=== PATIENT | female | born 1950 | race Caucasian/White ===

== ENCOUNTER 2021-06-17 06:18 | Emergency (ER) | payer MEDICARE ==
[2021-06-17] MEDS ORDERED: Aspirin 81 MG Tab.Chew PO STA (06:57)
[2021-06-17] MEDS ORDERED: HYDROmorphone 0.5 MG/0.5 ML Syringe IVPUSH ONE (06:57)
[2021-06-17] MEDS ORDERED: Ondansetron 4 MG/2 ML SDV IVPUSH ONE (06:57)
--- NOTE | 2021-06-17 06:58 | EDM.PDOC ---
<Nick Steward - Last Filed: 06/17/21 08:20> ED HPI GENERAL MEDICAL PROBLEM - General Chief Complaint: Chest Pain Stated Complaint: RIGHT SHOULDER PAIN Time Seen by Provider: 06/17/21 06:35 Source of Information: Reports: Patient, Family () History Limitations: Reports: No Limitations - History of Present Illness INITIAL COMMENTS - FREE TEXT/NARRATIVE: Mrs. Garcia is a very pleasant 71-year-old woman who now presents the ED after waking up at 04:00 with right shoulder pain. She states that the pain did not wake her up, but that it was present when she woke up. The pain then moved to involve her entire right upper extremity, her right back, then her anterior right chest at the site of her cardiac optimizer. Her pain is not modifiable with movement or position. She has had associated nausea, although no dyspnea, diaphoresis, or sense of impending doom. No prior similar symptoms. The patient did not take any [id number] or home remedies prior to coming to the ED. The patient has a past medical history significant for coronary artery disease and CHF. She states that she developed easy fatigability around 2006. An ec hocardiogram found severe CHF with a LVEF of 20 to 25%. A subsequent coronary angiogram found multivessel disease, prompting her to undergo a 3-vessel CABG in 2016. She states that she has never experienced angina, and never suffered an [place]. Her last cardiac stress test was in December 2019. The patient relates that she is supposed to take a baby aspirin per day, but does not. She also has a history of diabetes that she does not take her prescribed Metformin, and dyslipidemia that she does not treat, either. Here in the ED this morning, the patient's initial BP is found to be modestly elevated at 150/100, otherwise, she is hemodynamically stable, afebrile, saturating 98% on room air. She appears to be comfortable, in no acute distress. She states that at this time, she has only right shoulder pain, with no right upper extremity, back, or chest pain. Prior to this morning, the patient denies having a recent fever, chills, sore throat, ear pain, nasal or sinus congestion, cough, dyspnea, chest pain, palpitations, nausea, vomiting, constipation, diarrhea, abdominal pain, urinary symptoms, recent weight gain or weight loss, recent bloody bowel movements or black bowel movements, recent joint aches, headaches, or rashes. The patient and her reside in [place], although have a house in this area. She does not have a PCP in this area. She has an appointment to meet the Change Agent Dr. Yan Workman, at [facility], on 06/24/2021. She has received 2 COVID vaccinations. Right Shoulder Pain Score (Numeric/FACES): 10 - Related Data Allergies Allergy/AdvReac Type Severity Reaction Status Date / Time No Known Allergies Allergy Verified 06/17/21 06:58 Past Medical History Cardiovascular History: Reports: CAD (untreated), Heart Failure (LVEF 20-25%), High Cholesterol (untreated) Endocrine/Metabolic History: Reports: Diabetes, Type II (untreated) - Past Surgical History HEENT Surgical History: Reports: Tonsillectomy Cardiovascular Surgical History: Reports: AICD, Coronary Artery Bypass (x 3 vessel, 2017), Other (See Below) (Cardiac optimizer) GI Surgical History: Reports: Appendectomy Female Surgical History: Reports: Section (x 2), Hysterectomy (complete) Social & Family History - Tobacco Use Tobacco Use Status *Q: Former Tobacco User Years of Tobacco use: 33 Packs/Tins Daily: 1 Month/Year Tobacco Last Used: Quit 2004 Tobacco Use Comment: Started smoking 1971 - Alcohol Use Alcohol Use History: Yes Alcohol Use Frequency: Socially - Recreational Drug Use Recreational Drug Use: No - Living Situation & Occupation Living situation: Reports: , with Spouse Occupation: Unemployed ED ROS GENERAL - Review of Systems Review Of Systems: Comprehensive ROS is negative, except as noted in HPI. ED EXAM, GENERAL - Physical Exam Exam: See Below Exam Limited By: No Limitations General Appearance: Alert, WD/WN, No Apparent Distress Eye Exam: Bilateral Eye: EOMI, Normal Inspection Ears: Normal External Exam, Hearing Grossly Normal Nose: Normal Inspection Throat/Mouth: Normal Inspection, Normal Lips, Normal Voice, No Airway Compromise Head: Atraumatic, Normocephalic Neck: Normal Inspection, Full Range of Motion Respiratory/Chest: No Respiratory Distress, Lungs Clear, Normal Breath Sounds, No Accessory Muscle Use, Chest Non-Tender. No: Decreased Breath Sounds, Crackles, Rhonchi, Wheezing, Stridor, Prolonged Expiration Cardiovascular: Normal Peripheral Pulses, No Gallop, No JVD, No Murmur, No Rub, Irregularly Irregular (frequent PACs) Peripheral Pulses: 3+: Radial (L), Radial (R) GI/Abdominal: Normal Bowel Sounds, Soft, Non-Tender, No Organomegaly, No Distention, No Abnormal Bruit, No Mass Back Exam: Normal Inspection, Full Range of Motion, NT Extremities: Normal Range of Motion, No Pedal Edema, Normal Capillary Refill, Other (Tenderness to palpation to the lateral right shoulder, and pain to the shoulder with PROM, however, the patient is unable to say if the pain is the same as her initial presenting symptom) Neurological: Alert, Oriented, Normal Cognition, No Motor/Sensory Deficits Psychiatric: Normal Affect Skin Exam: Warm, Dry, Intact, Normal Color, No Rash #1 Interpretation EKG Date: 06/17/21 Time: 06:31 Rhythm: NSR (with several PACs) Rate (Beats/Min): 82 [place]: Normal P-Wave: Present QRS: RBBB (incomplete) ST-T: Depressed (II, aVF, V3-V6, w/ T-wave inversions V4-V6) QT: Normal Comparison: NA - No Prior EKG Course - Re-Assessments/Exams Free Text/Narrative Re-Assessment/Exam: 06/17/21 06:56 The patient woke with right shoulder pain, and she describes a sensation as a pain, not a discomfort. These features are not consistent with angina, however, the patient's ECG demonstrates diffuse ST depressions with T wave inversions, which are concerning for ischemia. Unfortunately, we do not have a prior ECG to compare. I have ordered a work-up that includes several blood tests and a portable chest x-ray. In the meantime, the patient will be given 4 baby aspirin, some IV Dilaudid, and some IV Zofran. 06/17/21 07:42 Notified that the patient's blood glucose is 404. I have ordered 8 units of regular insulin IVP. 06/17/21 07:47 Portable chest radiograph reviewed. There is mild cardiomegaly. No pulmonary vascular congestion or cephalization. No pleural effusions seen on this AP view. No focal infiltrate. No pneumothorax. Single-lead left-sided AICD noted. Triple-lead right-sided cardiac optimizer noted. Sternotomy wires noted. Formal read per the Radiologist pending. 06/17/21 08:00 The patient's CBC is unremarkable. Her CMP is remarkable for a Cr slightly elevated at 1.1 with a BUN normal at 18, hyperglycemia of 404, and an alkaline phosphatase slightly elevated at 117, with remainder of her CMP being unremarkable. Her troponin is undetectably low. Her pro-BNP is modestly elevated at 919. Her D-dimer is modestly elevated at 1.12. Her coags are within normal limits. I have ordered a repeat troponin to be drawn at 08:00, 4 hours after the onset of her symptoms. 06/17/21 08:[address] Cruz, and care of the patient turned over to him at this time for delong of shift. Departure - Departure Disposition: DC/Tfer to Acute Hospital 02 Clinical Impression: Non-STEMI (non-ST elevated myocardial infarction) Referrals: PCP,Not In Area [Primary Care Provider] - Yan Workman MD [Ordering Only Provider] - Forms: ED Department Discharge Sepsis Event Note (ED) - Evaluation Sepsis Screening Result: No Definite Risk <Adan Cruz - Last Filed: 06/17/21 14:12> Course - Vital Signs Last Recorded V/S: Last Vital Signs Temp 97.6 F 06/17/21 06:42 Pulse 83 06/17/21 06:42 Resp 18 06/17/21 06:42 BP 150/100 H 06/17/21 06:42 Pulse Ox 98 06/17/21 06:42 - Orders/Labs/Meds Orders: Active Orders 24 hr Category Date Time Status Heparin Sodium/D5W [Heparin 25,000 Units in D5W 500 ML] Med 06/17/21 09:30 Active 25,000 units in 500 ml IV TITRATE Nitroglycerin/D5W [Nitroglycerin 25 MG/D5W 250 ML] Med 06/17/21 09:30 Active 25 mg in 250 ml IV TITRATE Sodium Chloride 0.9% [Normal Saline] 1,000 ml Med 06/17/21 08:30 Active IV ASDIRECTED Sodium Chloride 0.9% [Normal Saline] 100 ml Med 06/17/21 08:30 Active IV ASDIRECTED Sodium Chloride 0.9% [Saline Flush] Med 06/17/21 08:19 Active 10 ml FLUSH ONETIME PRN Medication Orders Sodium Chloride (Normal Saline) 1,000 mls @ 75 mls/hr IV ASDIRECTED DAYRON Last Admin: 06/17/21 10:01 Dose: 75 mls/hr Documented by: SANKET Sodium Chloride (Normal Saline) 100 mls @ 75 mls/hr IV ASDIRECTED DAYRON Last Admin: 06/17/21 08:38 Dose: 75 mls/hr Documented by: SARWAT Nitroglycerin/Dextrose (Nitroglycerin 25 Mg/D5w 250 Ml) 25 mg in 250 mls @ 3 mls/hr IV TITRATE DAYRON; Protocol Last Admin: 06/17/21 09:58 Dose: 3 mls/hr, 3 mls/hr Documented by: SANKET Heparin Sodium/Dextrose (Heparin 25,000 Units In D5w 500 Ml) 25,000 units in 500 mls @ 19.858 mls/hr IV TITRATE DAYRON; Protocol Last Admin: 06/17/21 09:47 Dose: 11 units/kg/hr, 19.858 mls/hr Documented by: SANKET Cosigned by: MATLBIL Sodium Chloride (Sodium Chloride 0.9% 10 Ml Syringe) 10 ml FLUSH ONETIME PRN PRN Reason: IV FLUSH Last Admin: 06/17/21 08:38 Dose: 10 ml Documented by: SARWAT Labs: Laboratory Tests 06/17/21 06/17/21 06/17/21 Range/Units 06:40 06:40 06:40 WBC 8.05 (3.98-10.04) K/mm3 RBC 4.57 (3.98-5.22) M/mm3 Hgb 13.8 (11.2-15.7) gm/dl Hct 41.3 (34.1-44.9) % MCV 90.4 (79.4-94.8) fl MCH 30.2 (25.6-32.2) pg MCHC 33.4 (32.2-35.5) g/dl RDW Std Deviation 50.1 H (36.4-46.3) fL Plt Count 245 (182-369) K/mm3 MPV 9.6 (9.4-12.3) fl Neutrophils % (Manual) 77 H (40-60) % Band Neutrophils % 0 (0-10) % Lymphocytes % (Manual) 23 (20-40) % Atypical Lymphs % 0 % Monocytes % (Manual) 0 L (2-10) % Eosinophils % (Manual) 0 L (0.7-5.8) % Basophils % (Manual) 0 L (0.1-1.2) Platelet Estimate Adequate RBC Morph Comment Normal PT 10.5 (9.7-12.0) SECONDS INR 0.94 APTT 24.5 (21.7-31.4) SECONDS D-Dimer, Quantitative 1.12 H (0.19-0.50) mg/L Sodium 138 (136-145) mEq/L Potassium 4.0 (3.5-5.1) mEq/L Chloride 103 (98-107) mEq/L Carbon Dioxide 26 (21-32) mEq/L Anion Gap 13.0 (5-15) BUN 18 (7-18) mg/dL Creatinine 1.1 H (0.55-1.02) mg/dL Est Cr Clr Drug Dosing 52.20 mL/min Estimated GFR (MDRD) 49 (>60) mL/min BUN/Creatinine Ratio 16.4 (14-18) Glucose 404 H* (70-99) mg/dL Calcium 8.6 (8.5-10.1) mg/dL Total Bilirubin 0.5 (0.2-1.0) mg/dL AST 13 L (15-37) U/L ALT 19 (14-59) U/L Alkaline Phosphatase 117 H (46-116) U/L Troponin I < 0.017 (0.00-0.056) ng/mL NT-Pro-B Natriuret Pep (0-125) pg/mL Total Protein 7.3 (6.4-8.2) g/dl Albumin 3.3 L (3.4-5.0) g/dl Globulin 4.0 gm/dL Albumin/Globulin Ratio 0.8 L (1-2) SARS-CoV-2 RNA (DELBERT) (NEGATIVE) 06/17/21 06/17/21 06/17/21 Range/Units 06:40 08:16 09:06 WBC (3.98-10.04) K/mm3 RBC (3.98-5.22) M/mm3 Hgb (11.2-15.7) gm/dl Hct (34.1-44.9) % MCV (79.4-94.8) fl MCH (25.6-32.2) pg MCHC (32.2-35.5) g/dl RDW Std Deviation (36.4-46.3) fL Plt Count (182-369) K/mm3 MPV (9.4-12.3) fl Neutrophils % (Manual) (40-60) % Band Neutrophils % (0-10) % Lymphocytes % (Manual) (20-40) % Atypical Lymphs % % Monocytes % (Manual) (2-10) % Eosinophils % (Manual) (0.7-5.8) % Basophils % (Manual) (0.1-1.2) Platelet Estimate RBC Morph Comment PT (9.7-12.0) SECONDS INR APTT (21.7-31.4) SECONDS D-Dimer, Quantitative (0.19-0.50) mg/L Sodium (136-145) mEq/L Potassium (3.5-5.1) mEq/L Chloride (98-107) mEq/L Carbon Dioxide (21-32) mEq/L Anion Gap (5-15) BUN (7-18) mg/dL Creatinine (0.55-1.02) mg/dL Est Cr Clr Drug Dosing mL/min Estimated GFR (MDRD) (>60) mL/min BUN/Creatinine Ratio (14-18) Glucose (70-99) mg/dL Calcium (8.5-10.1) mg/dL Total Bilirubin (0.2-1.0) mg/dL AST (15-37) U/L ALT (14-59) U/L Alkaline Phosphatase (46-116) U/L Troponin I 0.084 H* (0.00-0.056) ng/mL NT-Pro-B Natriuret Pep 919 H (0-125) pg/mL Total Protein (6.4-8.2) g/dl Albumin (3.4-5.0) g/dl Globulin gm/dL Albumin/Globulin Ratio (1-2) SARS-CoV-2 RNA (DELBERT) Negative (NEGATIVE) Meds: Medications Generic Name Dose Route Start Last Admin Trade Name Freq PRN Reason Stop Dose Admin Sodium Chloride 1,000 mls @ 75 mls/hr 06/17/21 08:30 06/17/21 10:01 Normal Saline IV 75 mls/hr ASDIRECTED DAYRON Administration Sodium Chloride 100 mls @ 75 mls/hr 06/17/21 08:30 06/17/21 08:38 Normal Saline IV 75 mls/hr ASDIRECTED DAYRON Administration Nitroglycerin/Dextrose 25 mg in 250 mls @ 3 mls/hr 06/17/21 09:30 06/17/21 09:58 Nitroglycerin 25 Mg/D5w 250 Ml IV 3 mls/hr TITRATE DAYRON 3 mls/hr Administration Protocol Heparin Sodium/Dextrose 25,000 units in 500 mls @ 19.858 mls/hr 06/17/21 09:30 06/17/21 09:47 Heparin 25,000 Units In D5w 500 Ml IV 11 units/kg/hr TITRATE DAYRON 19.858 mls/hr Administration Protocol 11 UNITS/KG/HR Sodium Chloride 10 ml 06/17/21 08:19 06/17/21 08:38 Sodium Chloride 0.9% 10 Ml Syringe FLUSH 10 ml ONETIME PRN Administration IV FLUSH Discontinued Medications Generic Name Dose Route Start Last Admin Trade Name Celestina PRN Reason Stop Dose Admin Aspirin 324 mg 06/17/21 06:57 06/17/21 07:03 Aspirin 81 Mg Tab.Chew PO 06/17/21 06:58 324 mg ONETIME STA Administration Heparin Sodium (Porcine) 5,000 units 06/17/21 09:20 06/17/21 09:47 Heparin Sodium 5,000 Units/Ml Vial IVPUSH 06/17/21 09:21 5,000 units .BOLUS ONE Administration Hydromorphone HCl 0.5 mg 06/17/21 06:57 06/17/21 07:04 Hydromorphone 0.5 Mg/0.5 Ml Syringe IVPUSH 06/17/21 06:58 0.5 mg ONETIME ONE Administration Insulin Human Regular 8 unit 06/17/21 07:41 06/17/21 08:07 Insulin Regular, Human 100 Units/Ml 3 Ml Vial IV 06/17/21 07:42 8 unit ONETIME STA Administration Iopamidol 100 ml 06/17/21 08:19 06/17/21 08:38 Iopamidol 755 Mg/Ml 100 Ml Bottle IVPUSH 06/17/21 08:20 100 ml ONETIME ONE Administration Ondansetron HCl 4 mg 06/17/21 06:57 06/17/21 07:04 Ondansetron 4 Mg/2 Ml Sdv IVPUSH 06/17/21 06:58 4 mg ONETIME ONE Administration - Re-Assessments/Exams Free Text/Narrative Re-Assessment/Exam: 06/17/21 09:[address] Steward. Her CT angio shows no findings of pulmonary embolism. 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 Ectatic descending aorta with AP dimension of 3.3cm. Air filled cyst having a thin wall within the right upper lung measuring 1cm. No acute abnormality is otherwise seen. Her repeat troponin came back elevated at 0.084. I feel she is having a nonSTEMI. The pain is not gone but it is better. I ordered nitro drip and a heparin drip and bolus. I called [facility] and they have no beds and cannot take the patient. I called [facility] in [place] and they will have a bed and they will take the patient. I am waiting to talk to the hospitalist. 06/17/21 09:[address] Marrero and he accepted the patient. They will call me back when they have a room. 06/17/21 14:11 They called back and they can take the patient. I will transfer her. She has been doing good. Departure - Departure Time of Disposition: 14:15 Reason for Transfer *Q: Other Condition: Fair Sepsis Event Note (ED) - Focused Exam Vital Signs: Vital Signs Temp Pulse Resp BP Pulse Ox 06/17/21 06:42 97.6 F 83 18 150/100 H 98 - My Orders Last 24 Hours: My Active Orders 06/17/21 08:19 Sodium Chloride 0.9% [Saline Flush] 10 ml FLUSH ONETIME PRN 06/17/21 08:30 Sodium Chloride 0.9% [Normal Saline] 100 ml IV ASDIRECTED 06/17/21 09:30 Heparin Sodium/D5W [Heparin 25,000 Units in D5W 500 ML] 25,000 units in 500 ml IV TITRATE Nitroglycerin/D5W [Nitroglycerin 25 MG/D5W 250 ML] 25 mg in 250 ml IV TITRATE - Assessment/Plan Last 24 Hours: My Active Orders 06/17/21 08:19 Sodium Chloride 0.9% [Saline Flush] 10 ml FLUSH ONETIME PRN 06/17/21 08:30 Sodium Chloride 0.9% [Normal Saline] 100 ml IV ASDIRECTED 06/17/21 09:30 Heparin Sodium/D5W [Heparin 25,000 Units in D5W 500 ML] 25,000 units in 500 ml IV TITRATE Nitroglycerin/D5W [Nitroglycerin 25 MG/D5W 250 ML] 25 mg in 250 ml IV TITRATE
[2021-06-17] MEDS ORDERED: Insulin Regular, Human 100 Units/ML 3 ML Vial IV STA (07:41)
--- NOTE | 2021-06-17 07:51 | CR ---
Chest: Frontal view of the chest was obtained. Comparison: No prior chest imaging is available. AICD is present. Pacemaker also appears to be present. Sternotomy is noted. Heart size is slightly prominent. Lungs are felt to be clear with no acute parenchymal change. Bony structures show slight scoliosis within the spine. Impression: 1. Heart size is slightly prominent. Other findings believed to be chronic as noted above. 2. Nothing acute is seen. Diagnostic code #2
[2021-06-17] MEDS ORDERED: Iopamidol 755 Mg/ML 100 ML Bottle IVPUSH ONE (08:19)
[2021-06-17] MEDS ORDERED: Sodium Chloride 0.9% 10 ML Syringe FLUSH PRN (08:19)
[2021-06-17] MEDS ORDERED: Sodium Chloride 0.9% 1,000 ML IV SCH (08:30)
[2021-06-17] MEDS ORDERED: Sodium Chloride 0.9% 100 ML IV SCH (08:30)
--- NOTE | 2021-06-17 09:04 | CT ---
CT chest Technique: Multiple axial sections through the chest were obtained. Intravenous contrast was utilized. Study has been performed as a pulmonary angiogram protocol. Comparison: Prior chest x-ray of 06/17/21, no prior chest CT is available. Findings: Pulmonary arteries are well opacified. No filling defects are seen to indicate pulmonary embolism. Thoracic aorta is slightly aneurysmal at 4.2 cm in size. Ascending aorta measures about 3.3 cm in size which is slightly ectatic. Atherosclerotic change is noted within the coronary arteries. No pericardial thickening is seen. Heart is enlarged. Small portion of the visualized upper abdominal structures show a small cyst within the right kidney measuring 1.1 cm. No acute abnormality is seen. Lung window settings were reviewed. Air-filled cyst is noted within the right upper lung measuring 2.0 cm. This has a thin wall. Lungs otherwise are clear with no acute parenchymal change. No pleural effusions are seen. Bone window settings were reviewed which show previous sternotomy. No acute osseous abnormality is appreciated. Impression: 1. No findings of pulmonary embolism. 2. Slight aneurysmal dilatation of the ascending aorta at 4.2 cm. Ectatic descending aorta with AP dimension of 3.3 cm. 3. Air-filled cyst having a thin wall within the right upper lung measuring 2.0 cm. 4. No acute abnormality is otherwise seen. Diagnostic code #3
[2021-06-17] MEDS ORDERED: Heparin Sodium 5,000 Units/ML Vial IVPUSH ONE (09:20)
[2021-06-17] MEDS ORDERED: Nitroglycerin/D5W 25 MG/250 ML BOTTLE IV SCH (09:30)
[2021-06-17] MEDS ORDERED: Heparin Sodium/D5W 25,000 UNITS/500 ML BAG IV SCH (09:30)
== END 2021-06-17 13:40 ==
LOC: JD.ED 06:18
DX: I21.4 Non-ST elevation (NSTEMI) myocardial infarction (principal); I25.10 Atherosclerotic heart disease of native coronary artery without angina pectoris; E78.00 Pure hypercholesterolemia, unspecified; E11.9 Type 2 diabetes mellitus without complications; I50.9 Heart failure, unspecified; Z87.891 Personal history of nicotine dependence; Z20.822 Contact with and (suspected) exposure to COVID-19
CPT/HCPCS: 36415; 71045; 71275; 80053; 83880; 84484; 85007; 85027; 85379; 85610; 85730; 93005; 96365; 96366; 96367; 96375; 99285; A9270; J1170; J1644; J1815; J2405; J3490; J7030; Q9967; U0002

== ENCOUNTER 2022-07-26 21:01 | Emergency (ER) | payer MEDICARE ==
[2022-07-26] MEDS ORDERED: Sodium Chloride 0.9% 10 ML Syringe FLUSH PRN (21:10)
[2022-07-26] MEDS ORDERED: Aspirin 81 MG Tab.Chew PO ONE (21:10)
[2022-07-26] MEDS ORDERED: Diltiazem 25 MG/5 ML SDV IVPUSH ONE ×2 (21:12→23:04)
[2022-07-26] MEDS ORDERED: Diltiazem 125 MG in Sodium Chloride 0.9% 100 ML IV SCH (21:15)
[2022-07-26] MEDS ORDERED: Sodium Chloride 0.9% 1,000 ML IV SCH (21:15)
[2022-07-27] MEDS ORDERED: Apixaban 5 MG Tab PO ONE (00:05)
== END 2022-07-27 01:42 | disposition home or self-care (01) ==
LOC: JD.ED 21:01
DX: I48.0 Paroxysmal atrial fibrillation (principal); I25.10 Atherosclerotic heart disease of native coronary artery without angina pectoris; I11.0 Hypertensive heart disease with heart failure; E11.9 Type 2 diabetes mellitus without complications; Z79.01 Long term (current) use of anticoagulants
CPT/HCPCS: 36415; 71045; 80053; 83735; 84443; 84484; 85025; 85610; 85730; 93005; 96365; 96366; 96376; 99285; A9270; J3490; J7030

== ENCOUNTER 2023-03-07 19:44 | Emergency (ER) | payer MEDICARE ==
[2023-03-07] MEDS ORDERED: Diltiazem 25 MG/5 ML SDV IVPUSH ONE ×2 (20:29→20:47)
[2023-03-07 20:35] LABS: BASOPHILS ABSOLUTE AUTO 0.01 K/mm3 (0.01-0.08); BASOPHILS PERCENT AUTO 0.1 % (0.1-1.2); EOSINOPHILS ABSOLUTE AUTO 0.11 K/mm3 (0.04-0.36); EOSINOPHILS PERCENT AUTO 1.5 (0.7-5.8); HEMATOCRIT 45.3 % (34.1-44.9); HEMOGLOBIN 14.6 gm/dl (11.2-15.7); IMMATURE GRAN ABSOLUTE AUTO 0.01 K/mm3 (0.00-0.10); IMMATURE GRAN PERCENT AUTO 0.1 % (<=1.0); LYMPHOCYTES ABSOLUTE AUTO 2.23 K/mm3 (1.18-3.74); MEAN CORPUSCULAR HEMOGLOBIN 28.3 pg (25.6-32.2); MEAN CORPUSCULAR HGB CONC 32.2 g/dl (32.2-35.5); MEAN PLATELET VOLUME 9.7 fl (9.4-12.3); MONOCYTES ABSOLUTE AUTO 0.51 K/mm3 (0.24-0.36); MONOCYTES PERCENT AUTO 7.1 % (4.7-12.5); NEUTROPHILS ABSOLUTE AUTO 4.32 K/mm3 (1.56-6.13); NEUTROPHILS PERCENT AUTO 60.2 % (34.0-71.1); PLATELET COUNT,PLT 232 K/mm3 (182-369); RED BLOOD CELL COUNT 5.15 M/mm3 (3.98-5.22); WHITE BLOOD CELL COUNT,WBC 7.19 K/mm3 (3.98-10.04)
[2023-03-07] MEDS ORDERED: Metoprolol Succinate 50 MG Tab.ER PO ONE (21:03)
[2023-03-07 21:08] LABS: ALBUMIN 3.9 g/dl (3.4-5.0); BILIRUBIN TOTAL 0.7 mg/dL (0.2-1.0); BUN/CREATININE RATIO 23.3 (14-18); CALCIUM 9.8 mg/dL (8.5-10.1); CREATININE 0.9 mg/dL (0.55-1.02); EST CRCL DRUG DOSING (CG) 60.79 mL/min; MAGNESIUM 1.6 mg/dL (1.8-2.4); PROTEIN TOTAL,TP 7.9 g/dl (6.4-8.2)
[2023-03-07] MEDS ORDERED: Magnesium Sulfate/Water 2 GM in Premix Bag 1 BAG IV ONE (21:11)
[2023-03-07] MEDS ORDERED: Apixaban 5 MG Tab PO ONE (22:46)
[2023-03-07] MEDS ORDERED: Diltiazem 125 MG in Sodium Chloride 0.9% 100 ML IV SCH (23:00)
== END 2023-03-08 06:30 | disposition home or self-care (01) ==
LOC: JD.ED 19:44
DX: I48.92 Unspecified atrial flutter (principal); E83.42 Hypomagnesemia; E11.9 Type 2 diabetes mellitus without complications; I25.10 Atherosclerotic heart disease of native coronary artery without angina pectoris; Z87.891 Personal history of nicotine dependence; Z86.16 Personal history of COVID-19; Z95.1 Presence of aortocoronary bypass graft
CPT/HCPCS: 36415; 71045; 80053; 83735; 84484; 85025; 93005; 96365; 96366; 96367; 96376; 99285; A9270; J3475; J3490